=== PATIENT | female | born 1995 | race Caucasian/White ===

== ENCOUNTER 2016-12-29 13:10 | Emergency (ER) | payer MEDICAID ==
[2016-12-29 13:48] VITALS: BP 105/63
--- NOTE | 2016-12-29 14:24 | EDM.PDOC ---
ED HPI GENERAL MEDICAL PROBLEM - General Chief Complaint: [employer] Problem Stated Complaint: PELVIC PAIN Time Seen by Provider: 12/29/16 13:53 Source of Information: Reports: Patient History Limitations: Reports: No Limitations - History of Present Illness INITIAL COMMENTS - FREE TEXT/NARRATIVE: 21 yo female presents to ER with C/o pelvic pain and vaginal drainage. This morning while having sex with boyfriend pt experienced severe pain causing her to stop activity. She also reports vaginal drainage with odor over the last 2 weeks. She is unsure of her LMP. She stopped her oral contraceptive 1-2 months ago. She is sexually active and is not using any form of control. Denies fever, headache, chills, N/V/D Pelvic Pain Score (Numeric/FACES): 7 - Related Data Allergies Allergy/AdvReac Type Severity Reaction Status Date / Time No Known Allergies Allergy Verified 12/29/16 13:49 Past Medical History - Past Health History Medical/Surgical History: Denies Medical/Surgical History Social & Family History - Tobacco Use Smoking Status *Q: Unknown Ever Smoked - Alcohol Use Days Per Week of Alcohol Use: 0 - Recreational Drug Use Recreational Drug Use: No ED ROS GENERAL - Review of Systems Review Of Systems: See Below Constitutional: Denies: Fever, Chills Respiratory: Denies: Shortness of Breath, Wheezing Cardiovascular: Denies: Chest Pain GI/Abdominal: Reports: Abdominal Pain : Reports: Irregular Menses, Pain. Denies: Dysuria, Frequency, Hematuria, Urgency Musculoskeletal: Denies: Back Pain Skin: Reports: No Symptoms. Denies: Rash ED EXAM, GI/ABD - Physical Exam Exam: See Below Exam Limited By: No Limitations General Appearance: Alert, WD/WN, Mild Distress Head: Atraumatic, Normocephalic Respiratory/Chest: No Respiratory Distress, Lungs Clear, Normal Breath Sounds. No: Crackles, Rhonchi, Wheezing Cardiovascular: Regular Rate, Rhythm GI/Abdominal Exam: Soft, Tender (lower and suprapubic) (Female) Exam: Cervix Motion Tenderness, Vaginal Discharge (moderate amounts of white) Back Exam: No: CVA Tenderness (R), CVA Tenderness (L) Neurological: Alert, Oriented Psychiatric: Normal Affect, Normal Mood Skin Exam: Warm, Dry, Intact Course - Vital Signs Last Recorded V/S: Last Vital Signs Temp 37.2 C 12/29/16 13:43 Pulse 73 12/29/16 13:43 Resp 15 12/29/16 13:43 BP 105/63 12/29/16 13:43 Pulse Ox 99 12/29/16 13:43 - Orders/Labs/Meds Orders: Active Orders 24 hr Category Date Time Status CHLAMYDIA,AND GC BY APTIMA Stat Lab 12/29/16 15:20 Received Labs: Laboratory Tests 12/29/16 12/29/16 Range/Units 14:17 14:17 Urine Color Yellow Urine Appearance Clear Urine pH 8.0 (4.5-8.0) Ur Specific [place] 1.015 (1.008-1.030) Urine Protein Negative (NEGATIVE) mg/dL Urine Glucose (UA) Normal (NEGATIVE) mg/dL Urine Ketones Negative (NEGATIVE) mg/dL Urine Occult Blood Negative (NEGATIVE) Urine Nitrite Negative (NEGATIVE) Urine Bilirubin Negative (NEGATIVE) Urine Urobilinogen Normal (NORMAL) mg/dL Ur Leukocyte Esterase Negative (NEGATIVE) Urine RBC Not seen (0-5) Urine WBC 0-5 (0-5) Ur Epithelial Cells Rare Amorphous Sediment Not seen Urine Bacteria Few Urine Mucus Not seen Urine HCG, Qual Negative Meds: Medications Discontinued Medications Generic Name Dose Route Start Last Admin Trade Name Freq PRN Reason Stop Dose Admin Ibuprofen 600 mg 12/29/16 15:11 12/29/16 15:40 Motrin PO 12/29/16 15:12 600 mg ONETIME ONE Administration - Re-Assessments/Exams Free Text/Narrative Re-Assessment/Exam: 12/29/16 15:54 evaluated on arrival to ER. UA was WNL with negative UPT. wet prep clue cells. will treat with oral antibiotics and pelvic rest Departure - Departure Time of Disposition: 15:39 Disposition: Home, Self-Care 01 Condition: Good Clinical Impression: Bacterial vaginosis - Discharge Information Instructions: Bacterial Vaginosis, [id number] Referrals: PCP,None [Primary Care Provider] - Forms: ED Department Discharge Additional Instructions: Metronidazole 500 mg twice daily for 7 days Ibuprofen 400-600 mg every 6 hours for pain if pain does not resolve in 48 hours or if you develop fever chills or general ill feeling you need to be seen again - My Orders Last 24 Hours: My Active Orders 12/29/16 15:20 CHLAMYDIA,AND GC BY APTIMA Stat - Assessment/Plan Last 24 Hours: My Active Orders 12/29/16 15:20 CHLAMYDIA,AND GC BY APTIMA Stat
[2016-12-29] MEDS ORDERED: Ibuprofen 600 MG Tab PO ONE (15:11)
== END 2016-12-29 16:04 | disposition home or self-care (01) ==
LOC: JP.ED 13:10
DX: N76.0 Acute vaginitis (principal)
CPT/HCPCS: 81001; 81025; 87210; 87491; 87591; 99284; A9270

== ENCOUNTER 2017-11-30 03:33 | Emergency (ER) | payer MEDICAID ==
[2017-11-30 03:58] VITALS: BP 122/79
--- NOTE | 2017-11-30 04:12 | EDM.PDOC ---
ED HPI GENERAL MEDICAL PROBLEM - General Chief Complaint: Head Injury Stated Complaint: LACERATION TO BACK OF HEAD Time Seen by Provider: 11/30/17 04:12 Source of Information: Reports: Patient History Limitations: Reports: No Limitations - History of Present Illness INITIAL COMMENTS - FREE TEXT/NARRATIVE: pt was [place] the [employer] and she was dropped and hit the back of her head. She did have a loss of consciousness briefly. She has a headache at this time. She did do a fair amount of bleeding. She ended up with a laceration on the back of her head. Onset: Today, Sudden Duration: Hour(s): Location: Reports: Head Associated Symptoms: Reports: Headaches - Related Data Allergies Allergy/AdvReac Type Severity Reaction Status Date / Time No Known Allergies Allergy Verified 12/29/16 13:49 Home Meds: Home Meds NK [No Known Home Meds] 11/30/17 [History] Past Medical History - Past Health History Medical/Surgical History: Denies Medical/Surgical History Social & Family History - Tobacco Use Smoking Status *Q: Never Smoker Second Hand Smoke Exposure: No - Caffeine Use Caffeine Use: Reports: Coffee, Soda - Alcohol Use Days Per Week of Alcohol Use: 2 Number of Drinks Per Day: 1 Total Drinks Per Week: 2 Date of Last Drink: 11/30/17 Time of Last Drink: 03:00 - Recreational Drug Use Recreational Drug Use: No ED ROS GENERAL - Review of Systems Review Of Systems: See Below Constitutional: Reports: No Symptoms HEENT: Reports: No Symptoms, Other (pt has a hematoma on the back of her head and has a laceration in this area. ) Respiratory: Reports: No Symptoms Cardiovascular: Reports: No Symptoms Endocrine: Reports: No Symptoms GI/Abdominal: Reports: No Symptoms : Reports: No Symptoms ED EXAM, HEAD INJURY - Physical Exam Exam: See Below Text/Narrative:: pt is alert and oriented. She has been drinking. Exam Limited By: No Limitations General Appearance: Alert, Moderate Distress Head: Scalp Hematoma, Active Bleeding, Other ( pt has a scalp laceration. pupils are equal and reactive. ) Ears: Normal TMs Nose: Normal Inspection Throat/Mouth: Normal Inspection Neck: Non-Tender Respiratory: No Respiratory Distress Cardiovascular: Regular Rate, Rhythm GI/Abdominal Exam: Soft, Non-Tender (Female) Exam: Deferred Rectal (Female) Exam: Deferred Back Exam: Normal Inspection Extremities: Normal Inspection Neurologic: Alert, Oriented x 3 Course - Vital Signs Last Recorded V/S: Last Vital Signs Temp 36.6 C 11/30/17 03:57 Pulse 102 H 11/30/17 03:57 Resp 18 11/30/17 03:57 BP 122/79 11/30/17 03:57 Pulse Ox 96 11/30/17 03:57 - Orders/Labs/Meds Orders: Active Orders 24 hr Category Date Time Status Head wo Cont [CT] Stat Exams 11/30/17 04:11 Taken HCG QUALITATIVE,URINE [URCHEM] Stat Lab 11/30/17 04:19 Ordered Bacitracin [Bacitracin Oint 1 GM] Med 11/30/17 05:12 Once 1 dose TOP ONETIME ONE Lidocaine 1% [Xylocaine 1%] Med 11/30/17 05:11 Once 20 ml INJECT ONETIME ONE Medication Orders Lidocaine HCl (Xylocaine 1%) 20 ml INJECT ONETIME ONE Stop: 11/30/17 05:12 Labs: Laboratory Tests 11/30/17 Range/Units 04:19 Urine HCG, Qual Negative Meds: Medications Generic Name Dose Route Start Last Admin Trade Name Lisseth PRN Reason Stop Dose Admin Lidocaine HCl 20 ml 11/30/17 05:11 Xylocaine 1% INJECT 11/30/17 05:12 ONETIME ONE - Re-Assessments/Exams Free Text/Narrative Re-Assessment/Exam: 11/30/17 05:36 pt had a glacow of 15. Her cat scan of the head was neg. She had a 1.5 inch laceration on the back of her head with considerable swelling. The wound was cleaned well. There was a fair amount of active bleeding. The wound was infiltrated with 1% lidocaine. It was closed with 3-0 ethilon The wound was brought together tightly. A pressure dressing was applied and should be left in place for the next 6 hours. After the dressing is removed she can wash her hair and after that it should be left dry. Departure - Departure Time of Disposition: 05:40 Disposition: Home, Self-Care 01 Condition: Fair Clinical Impression: Scalp laceration, Loss of consciousness - Discharge Information Referrals: PCP,None [Primary Care Provider] - Forms: ED Department Discharge Care Plan Goals: cool pack to head, leave pressure dressing on for the next 5-6 hours. Patient may then wash her hair and after that it should be left dry, sr in 7-8 days. rtc if any further problems. - My Orders Last 24 Hours: My Active Orders 11/30/17 04:11 Head wo Cont [CT] Stat 11/30/17 04:19 HCG QUALITATIVE,URINE [URCHEM] Stat 11/30/17 05:11 Lidocaine 1% [Xylocaine 1%] 20 ml INJECT ONETIME ONE 11/30/17 05:12 Bacitracin [Bacitracin Oint 1 GM] 1 dose TOP ONETIME ONE - Assessment/Plan Last 24 Hours: My Active Orders 11/30/17 04:11 Head wo Cont [CT] Stat 11/30/17 04:19 HCG QUALITATIVE,URINE [URCHEM] Stat 11/30/17 05:11 Lidocaine 1% [Xylocaine 1%] 20 ml INJECT ONETIME ONE 11/30/17 05:12 Bacitracin [Bacitracin Oint 1 GM] 1 dose TOP ONETIME ONE
[2017-11-30] MEDS ORDERED: Lidocaine 1% 20 ML MDV INJECT ONE (05:11)
[2017-11-30] MEDS ORDERED: Bacitracin Oint 1 GM U/D Packet TOP ONE (05:12)
== END 2017-11-30 05:53 | disposition home or self-care (01) ==
LOC: JP.ED 03:33
DX: S06.9X9A Unspecified intracranial injury with loss of consciousness of unspecified duration, initial encounter (principal); S01.01XA Laceration without foreign body of scalp, initial encounter; W01.10XA Fall on same level from slipping, tripping and stumbling with subsequent striking against unspecified object, initial encounter; Y93.41 Activity, dancing
CPT/HCPCS: 12002; 70450; 81025; 99284-25